=== PATIENT | male | born 1970 | race Caucasian/White ===

== ENCOUNTER 2019-05-04 08:03 | Inpatient (IN) | payer BC ==
[~2019-05-04] VITALS: Ht 185.4 cm; Wt 118.0 kg
[~2019-05-04 08:03] MED LIST: ACET-1600 PO; ASPI-496 PO; ASPI81TA45 PO; EPINEPHRINE 1 MG/ML, 1ML ONE; IBUP-1223 PO; KETOROLAC 60 MG/2 ML ONE; LEFL20TA16 PO; MELO7.5T31 PO; OXYC5CAP2 PO; ROPIvacaine/PF 0.5%, 30 ML ONE; SODIUM CHLORIDE 0.9% 50 ML ONE; TOFA5TAB PO; TRAM50TA2 PO; TRANEXAMIC ACID 100 MG/ML, 10ML ONE; VANCOMYCIN 1,000 MG ONE
[2019-05-04] MEDS ORDERED: VANCOMYCIN PER PHARMACY MC STA (08:33)
[2019-05-04 08:45] VITALS: BP 147/100
[2019-05-04] MEDS ORDERED: LACTATED RINGERS 1,000 ML IV SCH (08:57)
[2019-05-04] MEDS ORDERED: VANCOMYCIN 2,000 MG in SODIUM CHLORIDE 0.9% 500 ML IV ONE (09:00)
[2019-05-04] MEDS ORDERED: ACETAMINOPHEN 500 MG TABLET PO ONE (09:00)
[2019-05-04] MEDS ORDERED: GABAPENTIN 300 MG CAPSULE PO ONE (09:00)
[2019-05-04] MEDS ORDERED: MIDAZOLAM 1 MG/ML, 2ML ONE (09:22)
[2019-05-04] MEDS ORDERED: FENTANYL PF 250 MCG/5ML ONE (09:22)
[2019-05-04] MEDS ORDERED: METOPROLOL 1 MG/ML, 5ML ONE (09:50)
[2019-05-04] MEDS ORDERED: ACETAMINOPHEN 650 MG/20.3 ML UDC PO PRN (10:00)
[2019-05-04] MEDS ORDERED: HYDROcodone/APAP 5/325 TABLET PO PRN (10:00)
[2019-05-04] MEDS ORDERED: SENNA/DOCUSATE TABLET PO PRN (10:00)
[2019-05-04] MEDS ORDERED: DIPHENHYDRAMINE 50 MG CAPSULE PO PRN (10:00)
[2019-05-04] MEDS ORDERED: MAGNESIUM HYDROXIDE 8%, 30ML UDC PO PRN (10:00)
[2019-05-04] MEDS ORDERED: ZOLPIDEM 5MG TABLET PO PRN (10:00)
[2019-05-04] MEDS ORDERED: ONDANSETRON 2MG/ML, 2ML IV PRN (10:00)
[2019-05-04] MEDS ORDERED: BISACODYL 10 MG SUPP PR PRN (10:00)
[2019-05-04] MEDS ORDERED: ONDANSETRON ODT 4 MG PO PRN (10:00)
[2019-05-04] MEDS ORDERED: KETOROLAC 30 MG/1 ML IV PRN (10:30)
[2019-05-04] MEDS ORDERED: DIAZEPAM 5 MG/ML, 2ML IVPush PRN (10:30)
[2019-05-04] MEDS ORDERED: ALBUTEROL SULFATE 2.5 MG/3 ML NPPB PRN (10:30)
[2019-05-04] MEDS ORDERED: hydrALAzine 20 MG/ML, 1ML IV PRN (10:30)
[2019-05-04] MEDS ORDERED: OXYcodone 5 MG/5 ML ORAL.SOL UDC PO PRN (10:30)
[2019-05-04] MEDS ORDERED: ACETAMINOPHEN 325 MG TABLET PO PRN (10:30)
[2019-05-04] MEDS ORDERED: PROMETHAZINE 25 MG/ML, 1ML IV PRN (10:30)
[2019-05-04] MEDS ORDERED: MEPERIDINE/PF 25MG/0.5ML IVPush PRN (10:30)
[2019-05-04] MEDS ORDERED: LABETALOL 5MG/ML, 20ML IV PRN (10:30)
[2019-05-04] MEDS ORDERED: PROPOFOL 10 MG/ML, 20ML ONE (11:01)
[2019-05-04] MEDS ORDERED: DEXAMETHASONE 4 MG/ML, 1ML ONE (11:01)
[2019-05-04] MEDS ORDERED: SUCCINYLCHOLINE 20 MG/ML, 10ML ONE (11:01)
[2019-05-04] MEDS ORDERED: NEOSTIGMINE 1 MG/ML, 10ML ONE (11:01)
[2019-05-04] MEDS ORDERED: CEFAZOLIN 1,000 MG ONE (11:01)
[2019-05-04] MEDS ORDERED: ONDANSETRON 2MG/ML, 2ML ONE (11:01)
[2019-05-04] MEDS ORDERED: GLYCOPYRROLATE 0.2MG/1ML, 5ML ONE (11:01)
[2019-05-04] MEDS ORDERED: ROCURONIUM 10MG/ML,5ML ONE (11:01)
[2019-05-04] MEDS ORDERED: HYDROmorphone 1 MG/ML, 1ML INJ ONE (11:48)
[2019-05-04] MEDS ORDERED: OXYcodone 5 MG/5 ML ORAL.SOL UDC ONE (11:48)
[2019-05-04] MEDS ORDERED: FENTANYL PF 100 MCG/2ML ONE (11:48)
[2019-05-04] MEDS: FENTANYL PF 100 MCG/2ML IV PRN ×2 (11:50→12:00)
[2019-05-04] MEDS: HYDROmorphone 2 MG/ML, 1ML IVPush PRN ×2 (11:56→12:11)
[2019-05-04] MEDS ORDERED: TOFA5TAB PO (14:21)
[2019-05-04 14:49] VITALS: BP 137/87
[2019-05-04] MEDS: ASPIRIN 81 MG TABLET EC PO SCH (18:00)
[2019-05-04] MEDS: NS + 20MEQ KCL 1,000 ML IV SCH (18:21)
[2019-05-04] MEDS: CEFAZOLIN PMX 2GM/50ML 50 ML IVPB SCH (18:22)
[2019-05-04 20:12] VITALS: BP 114/75
[2019-05-04] MEDS: DOCUSATE 100 MG CAPSULE PO SCH (20:19)
[2019-05-05 00:27] VITALS: BP 128/66
[2019-05-05] MEDS: CEFAZOLIN PMX 2GM/50ML 50 ML IVPB SCH (02:20)
[2019-05-05] MEDS: NS + 20MEQ KCL 1,000 ML IV SCH (02:56)
[2019-05-05 04:14] VITALS: BP 157/80
[2019-05-05] MEDS: OXYcodone IR 5MG TABLET PO PRN ×3 (05:44→10:26)
[2019-05-05] MEDS: ASPIRIN 81 MG TABLET EC PO SCH (05:44)
[2019-05-05] MEDS ORDERED: DEXAMETHASONE 4 MG/ML, 1ML IVPush SCH (06:00)
[2019-05-05 07:30] VITALS: BP 134/79
[2019-05-05] MEDS: DOCUSATE 100 MG CAPSULE PO SCH (08:25)
[2019-05-05 13:45] VITALS: BP 121/76
== END 2019-05-05 10:30 | disposition home or self-care (01) | DRG 468 ==
LOC: ORIP 08:03 → 4NE 14:20
PROVIDERS: ADMIT Orthopaedic Surgery; ATTEND Orthopaedic Surgery
PROC: 0SPB0JZ Removal of Synthetic Substitute from Left Hip Joint, Open Approach (ICD-10-PCS; 2019-05-04)
PROC: 0SRB06A Replacement of Left Hip Joint with Oxidized Zirconium on Polyethylene Synthetic Substitute, Uncemented, Open Approach (ICD-10-PCS; principal; 2019-05-04 10:30)
DX: T84.021A Dislocation of internal left hip prosthesis, initial encounter (principal); Y83.8 Other surgical procedures as the cause of abnormal reaction of the patient, or of later complication, without mention of misadventure at the time of the procedure; E66.9 Obesity, unspecified; F17.200 Nicotine dependence, unspecified, uncomplicated; Y92.098 Other place in other non-institutional residence as the place of occurrence of the external cause; Z68.34 Body mass index [BMI] 34.0-34.9, adult; Z79.899 Other long term (current) drug therapy; Z90.89 Acquired absence of other organs; Z82.49 Family history of ischemic heart disease and other diseases of the circulatory system; Z82.61 Family history of arthritis
CPT/HCPCS: 36415; 72170; 76000; 85014; 85018; 86850; 86900; C1713; G0378; J0171; J0690; J1100; J1170; J1885; J2250; J2405; J2704; J2710; J2795; J3010; J3370; J3480; C1776; J0330; J7040; J7120